=== PATIENT | male | born 1955 | race Caucasian/White ===

== ENCOUNTER 2016-12-23 14:57 | Inpatient (IN) ==
[2016-12-23] MEDS ORDERED: ONDANSETRON 4 MG/2 ML VIAL IV PRN (15:09)
[2016-12-23] MEDS ORDERED: SODIUM CHLORIDE 0.9% 1,000 ML IV SCH (15:30)
[2016-12-23] MEDS ORDERED: MAGNESIUM SULF RIDER 4 GM in PREMIX 1 EACH IV PRN (17:58)
[2016-12-23] MEDS ORDERED: SODIUM PHOSPHATE IV PRN (17:58)
[2016-12-23] MEDS ORDERED: SODIUM CHLORIDE 0.9% IV PRN (17:58)
[2016-12-23] MEDS ORDERED: MAGNESIUM SULF RIDER 2 GM in PREMIX 1 EACH IV PRN (17:58)
[2016-12-23] MEDS ORDERED: INSULIN REGULAR 100 UNIT/ML IV ONE ×2 (17:58→22:32)
[2016-12-23] MEDS ORDERED: DEXTROSE 50% 25 GM/50 ML VIAL IV PRN ×2 (17:58)
[2016-12-23] MEDS ORDERED: SODIUM BICARB INJ 100 MEQ in STERILE WATER INJ 400 ML IV PRN (17:58)
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
[2016-12-23] MEDS ORDERED: SKIN HEALING OINT (AQUAPHOR) 50 GM TUBE TOP PRN (18:28)
[2016-12-23 18:32] LABS: ABG Base Excess 1.3 MMOL/L (-2.5-2.5); ABG HCO3 25.6 MMOL/L (20-26); ABG Oxygen Saturation 99.3 % (95-100); ABG PCO2 33.7 MM HG (35-48); ABG PH 7.469 (7.35-7.45)
[2016-12-23] MEDS: INSULIN REGULAR DRIP 100 ML IV SCH (18:47)
[2016-12-23] MEDS: FONDAPARINUX 2.5 MG/0.5 ML SYRINGE SUBCUT SCH (18:47)
[2016-12-23] MEDS: PIPERACILLIN/TAZOBACTAM 3,375 MG in SODIUM CHLORIDE 0.9% 100 ML IV SCH (18:47)
--- NOTE | 2016-12-23 18:48 | XRay Report ---
XR chest 1V Indication: Shortness of breath. Comparison: Chest x-ray 12/02/2016. Technique: Portable AP chest was performed. Findings: Minimal haziness in the left costophrenic angle is unchanged suggesting minimal blunting and perhaps a small amount of dependent pleural fluid. Lungs otherwise are clear. The cardiomediastinal silhouette as well as right-sided central venous catheter are stable. Chest is otherwise unchanged. Impression: 1. Minimal interval change in the chest is suggested. Trace amount of pleural fluid within the left chest versus possible beam attenuation from anterior chest wall soft tissues partially opacifying the left costophrenic angle could be considered. 12/23/2016 6:44 PM PROCEDURE INTERPRETED AT [facility] DEPARTMENT OF RADIOLOGY Final Report Signed by: Dr. Jonny Jorgensen
[2016-12-23 19:09] LABS: Basophils % 0.2 % (0.0-0.8); Eosinophils % 0.2 % (0.00-10.9); Hematocrit 36.1 VOL% (42.0-52.0); Hemoglobin 10.8 GM/DL (14.0-18.0); Immature Granulocytes % 0.6 %; Immature Granulocytes Absolute 0.07 #; Lymphocytes # 2.9 10*3/uL (1.4-4.0); Lymphocytes % 26.7 % (21.2-54.2); Mean Corpuscular HGB Conc 29.9 GM/DL (32-36); Mean Corpuscular Hemoglobin 32 PG (27-34); Mean Corpuscular Volume 107.4 FL (87-102); Mean Platelet Volume 11.6 FL (9.6-12.0); Monocytes # 0.6 10*3/uL (0.11-0.8); Monocytes % 5.8 % (1.7-12.7); Neutrophils # 7.2 10*3/uL (1.4-7.4); Neutrophils % 66.5 % (38.7-73.9); Platelet Count 112 T/CUMM (130-400); Red Blood Count 3.36 MC/CUMM (3.8-5.5); White Blood Count 10.9 T/CUMM (4-12)
[2016-12-23 19:22] LABS: Calcium 8.3 MG/DL (8.5-10.1); Osmolality,Calculated 343.3 MOS/KG (273-304)
[2016-12-23] MEDS ORDERED: VANCOMYCIN INJ 1,500 MG in SODIUM CHLORIDE 0.9% 500 ML IV ONE (19:30)
[2016-12-23] MEDS: SODIUM CHLORIDE 0.45% 1,000 ML IV SCH (20:27)
[2016-12-23] MEDS: DOCUSATE SODIUM 100 MG CAPSULE PO SCH (20:28)
[2016-12-23] MEDS: VALPROIC ACID 250 MG/5 ML UDCUP PO SCH (20:31)
[2016-12-23 20:48] LABS: Apearance,Urine Slightly Hazy (Clear); Bacteria,Urine Occasional /HPF (Few); Bilirubin,Urine Negative (Negative); Blood, Urine Negative (Negative); Glucose,Urine (UA) Negative (Negative); Hyaline Casts,Urine 8 /LPF (0-3); Ketones,Urine Negative (Negative); Mucus,Urine Occasional /LPF (Occasional); Nitrite,Urine Negative (Negative); Protein,Urine Negative; RBC,Urine 13 /HPF (0-4); Renal Epithelial Cells,Urine Occasional /HPF (<1); Squamous Epithelial Cell,Urine Occasional /HPF (0-10); Urine Color Amber (Yellow); Urine Specific Gravity 1.021 (1.001-1.035); WBC,Urine 48 /HPF (0-6)
[2016-12-23] MEDS ORDERED: DIVALPROEX 500 MG TABLET PO SCH (21:00)
[2016-12-23] MEDS ORDERED: VALPROIC ACID 250 MG/5 ML UDCUP PO SCH (21:00)
[2016-12-23] MEDS ORDERED: ALBUTEROL/IPRATROPIUM 3 ML NEB RESP TX PRN (21:25)
[2016-12-23] MEDS ORDERED: SODIUM CHLORIDE 0.9% 1,000 ML IV ONE (21:25)
[2016-12-23 22:17] LABS: Calcium 8.4 MG/DL (8.5-10.1); Osmolality,Calculated 341.9 MOS/KG (273-304); Potassium 3.9 MMOL/L (3.5-5.1)
[2016-12-24 01:14] LABS: Allen Test Positive
[2016-12-24 01:15] LABS: ABG Base Excess -0.9 MMOL/L (-2.5-2.5); ABG HCO3 22.7 MMOL/L (20-26); ABG PCO2 34.9 MM HG (35-48); ABG PH 7.431 (7.35-7.45); ABG PO2 127.3 MM HG (80-95); ABG TCO2 23.8 MMOL/L (23-27)
[2016-12-24 01:16] LABS: ABG Oxygen Saturation 98.6 % (95-100)
[2016-12-24] MEDS: DEXTROSE 5% NACL 0.45% 1,000 ML IV SCH ×3 (01:57→07:45)
[2016-12-24 02:38] LABS: Calcium 7.7 MG/DL (8.5-10.1); Osmolality,Calculated 334.9 MOS/KG (273-304); Potassium 3.9 MMOL/L (3.5-5.1)
[2016-12-24] MEDS: POTASSIUM CHLORIDE RIDER 10 MEQ in PREMIX 1 EACH IV PRN ×2 (03:23→04:30)
[2016-12-24] MEDS: PIPERACILLIN/TAZOBACTAM 3,375 MG in SODIUM CHLORIDE 0.9% 100 ML IV SCH ×3 (03:28→18:07)
[2016-12-24 03:34] LABS: Allen Test Positive
[2016-12-24 03:36] LABS: ABG Base Excess -0.3 MMOL/L (-2.5-2.5); ABG HCO3 23.9 MMOL/L (20-26); ABG Oxygen Saturation 97.6 % (95-100); ABG PCO2 37.5 MM HG (35-48); ABG PH 7.422 (7.35-7.45); ABG PO2 112.1 MM HG (80-95)
[2016-12-24 03:53] LABS: Basophils % 0.3 % (0.0-0.8); Eosinophils # 0.1 10*3/uL (0.0-0.87); Hematocrit 32.9 VOL% (42.0-52.0); Hemoglobin 9.6 GM/DL (14.0-18.0); Immature Granulocytes % 0.6 %; Immature Granulocytes Absolute 0.04 #; Lymphocytes # 1.2 10*3/uL (1.4-4.0); Lymphocytes % 17.8 % (21.2-54.2); Mean Corpuscular HGB Conc 29.2 GM/DL (32-36); Mean Corpuscular Hemoglobin 32 PG (27-34); Mean Corpuscular Volume 109.7 FL (87-102); Mean Platelet Volume 11.2 FL (9.6-12.0); Monocytes # 0.3 10*3/uL (0.11-0.8); Monocytes % 3.9 % (1.7-12.7); Neutrophils # 5.3 10*3/uL (1.4-7.4); Neutrophils % 76.4 % (38.7-73.9); Red Cell Distribution Width 19.7 % (9.3-17.3); White Blood Count 6.9 T/CUMM (4-12)
[2016-12-24 03:58] LABS: Platelet Count 79 T/CUMM (130-400)
[2016-12-24] MEDS: SODIUM CHLORIDE 0.45% 1,000 ML IV SCH ×2 (04:29→06:11)
[2016-12-24 04:48] LABS: Band Neutrophils 3 % (0-10); Eosinophils 2 % (0-10); Lymphocytes 14 % (20-55); Metamyelocytes 1 %; Platelet Estimate Decreased; Segmented Neutrophils 78 % (50-85); Total Cells Counted 100
[2016-12-24 04:49] LABS: Anisocytosis 3+; Macrocytosis 3+; Ovalocytes Few
[2016-12-24 05:23] LABS: Albumin 1.8 G/DL (3.4-5.0); Bilirubin,Total 1.1 MG/DL (0.2-1.0); Calcium 7.9 MG/DL (8.5-10.1); Magnesium 2.1 MG/DL (1.8-2.4); Osmolality,Calculated 335.2 MOS/KG (273-304); Potassium 3.9 MMOL/L (3.5-5.1); Risk Ratio 3.4; Total Protein 5.9 G/DL (6.4-8.3); VLDL CHOLESTEROL 26.8 MG/DL
[2016-12-24 06:41] LABS: Calcium 7.7 MG/DL (8.5-10.1)
[2016-12-24] MEDS: INSULIN REGULAR DRIP 100 ML IV SCH ×2 (07:56)
[2016-12-24] MEDS: ASPIRIN CHEW 81 MG TABLET PO SCH ×2 (08:05→15:38)
[2016-12-24] MEDS: DOCUSATE SODIUM 100 MG CAPSULE PO SCH ×2 (08:05→20:59)
[2016-12-24] MEDS: BISACODYL 5 MG TABLET PO SCH ×2 (08:06→15:38)
[2016-12-24] MEDS: TAMSULOSIN 0.4 MG CAPSULE PO SCH ×2 (08:06→15:38)
[2016-12-24] MEDS: CLOPIDOGREL 75 MG TABLET PO SCH ×2 (08:06→15:38)
--- NOTE | 2016-12-24 08:14 | XRay Report ---
XR chest 1V portable Indication: COPD Comparison: Chest x-ray 12/23/2016 Technique: Portable AP chest was performed. Findings: Right-sided central venous catheter is stable. Haziness in the left costophrenic angle may in part reflect soft tissue attenuation. Change in the lung parenchyma or cardiac silhouette has occurred. Impression: 1. No adverse interval change in the chest. Haziness in the left costophrenic angle is favored to represent beam attenuation from anterior chest wall soft tissues. 12/24/2016 8:11 AM PROCEDURE INTERPRETED AT [facility] DEPARTMENT OF RADIOLOGY Final Report Signed by: Dr. Jonny Jorgensen
--- NOTE | 2016-12-24 08:32 | Hospitalist Progress Note ---
Assessment and Plan - Time spent with patient Time spent with patient: Greater than 30 minutes (1) Severe sepsis Status: Acute Assessment and plan: Patient was admitted with severe sepsis with likely source of sacral decubitus versus possible UTI. He was placed on broad-spectrum IV antibiotics. General surgery has been consulted to assess his sacral decubitus. Current Visit: Yes (2) Sacral decubitus ulcer Status: Acute Assessment and plan: Continuing IV antibiotics and awaiting general surgery evaluation and recommendations. Current Visit: Yes (3) Hypernatremia Problem details: Continue free water replacement. Status: Resolved Assessment and plan: Continuing to volume resuscitate, monitoring electrolytes and making adjustments as needed. Current Visit: No (4) Uncontrolled type 2 diabetes mellitus with hyperglycemia Status: Acute Assessment and plan: Patient had uncontrolled diabetes mellitus with hyperglycemia and electrolyte abnormality of diabetic ketoacidosis on admission. We will continue to hydrate , correct electrolytes, continue insulin subcutaneously with Accu-Cheks and sliding scale for control. Current Visit: Yes (5) Thrombocytopenia Status: Acute Assessment and plan: No evidence of bleeding at this time. Platelets did drop. We will continue to monitor closely. Current Visit: No (6) Seizure disorder Status: Chronic Assessment and plan: No noted seizure activity at this time. Continue his current medical regimen. Current Visit: No (7) Coronary artery disease Status: Chronic Assessment and plan: No evidence of acute coronary syndrome. Continue current medical regimen. Current Visit: No Hospitalist: Subjective Interval history: Chart has been reviewed and patient examined. I have reviewed his outline record as well and see no evidence of diabetic ketoacidosis as he had no acidosis present and no anion gap. No new issues at this time. Exam - Constitutional Vitals: Period Temp Pulse Resp BP Sys/Camara Pulse Ox Last 24 Hr 97.2 F-99.4 F 114-126 17-31 70-100/45-91 100-100 General appearance: no acute distress - Head Head exam: Present: normocephalic, atraumatic - Eye Eye exam: Present: EOMI Pupils: Present: TREVOR - ENT ENT exam: Present: other (Dry mucous membranes) - Neck Neck exam: Present: normal inspection - Respiratory Respiratory exam: Present: clear to auscultation bilaterally - Cardiovascular Cardiovascular exam: Present: regular rate and rhythm, tachycardia - GI/Abdominal GI/Abdominal exam: Present: normal bowel sounds, soft, other (PEG tube in place) . Absent: mass, tenderness, rebound - Extremities Exam Extremities exam: Absent: calf tenderness, edema - Back Exam Back exam: Present: normal inspection - Neurological Exam Neurological exam: Present: other (Opens his eyes and does not follow commands. Very minimal withdrawal to tactile stimulation of his upper and lower extremities) - Skin Skin exam: Present: warm, dry Results - Labs CBC & BMP: 12/24/16 03:30 12/24/16 05:04 Lab Results: I have reviewed the past 24 hour labs - Diagnostic Findings Procedure: Chest x-ray: report reviewed by me
[2016-12-24] MEDS ORDERED: GLUCAGON 1 MG VIAL IM PRN (08:42)
[2016-12-24] MEDS: VALPROIC ACID 250 MG/5 ML UDCUP PO SCH ×2 (09:11→20:59)
[2016-12-24] MEDS: DEXT 5% NACL 0.2% KCL 20 MEQ 20 MEQ/1,000 ML BAG IV SCH ×2 (09:27→17:12)
[2016-12-24 10:42] LABS: Calcium 7.6 MG/DL (8.5-10.1); Osmolality,Calculated 332.2 MOS/KG (273-304)
--- NOTE | 2016-12-24 10:57 | General Surgery Consult Note ---
Assessment and Plan (1) Sacral decubitus ulcer Status: Acute Assessment and plan: This patient was admitted for treatment of presumed sepsis. He does have a urinary tract infection on his urinalysis. I am not convinced that he is truly in septic shock. I certainly do not think that his decubitus ulcer as the cause of this kind either way, I do not of presentation. Feel that we should offer this patient debridement of his sacral decubitus wound. He has low quality of life and is bedbound in a [place] [facility] [place]. He is a paranoid schizophrenic who now is requiring tube feeds and he can make any decisions on his own. Family has been difficult to contact. I do not think putting him through the pain and suffering of debriding of decubitus ulcers in his best interest. I understand the possibility of this ulcer eventually causing a septic episode that he may not be able to recover from but given his quality of life and overall situation I do not feel that putting him through the stress and pain of an operation would be the right thing to do. I will discuss this with his family as soon as we can get a hold of them. Current Visit: Yes History of Present Illness Chief complaint: Sacral wound and urinary tract infection History of present illness: Mr. Rollins is a 61 year old male who apparently has schizophrenia and is completely nonfunctional now requires feedings through a PEG tube and is at a [place] [facility] [place] who was admitted to [place] for presumed sepsis and has a urinary tract infection and a sacral decubitus wound that we have been following without debridement. He was admitted to the CCU overnight with a normal white blood cell count. He has no fevers. His blood pressure is slightly low but his lactic acid was normal. He is not acidotic. He is completely nonverbal and does not communicate at all. Home Medications Medication Instructions Recorded Confirmed Type Clopidogrel [Plavix] 75 mg PO DAILY 11/27/16 12/23/16 History Divalproex [Depakote] 500 mg PO BID 11/27/16 11/27/16 History amLODIPine [Norvasc] 5 mg PO DAILY 11/27/16 12/23/16 History Aspirin Chew Tab 81 mg PO DAILY tablet 12/13/16 12/23/16 Rx Bisacodyl Tab [Dulcolax Tab] 10 mg PO DAILY tablet 12/13/16 12/23/16 Rx Collagenase Oint [Santyl Oint] 1 applic TOP DAILY applic 12/13/16 12/23/16 Rx Docusate Sodium Cap [Colace Cap] 100 mg PO BID capsule 12/13/16 12/23/16 Rx Skin Healing Oint (Aquaphor) 1 applic TOP PRN PRN #0 applic 12/13/16 12/23/16 Rx [Aquaphor] Tamsulosin [Flomax] 0.4 mg PO DAILY capsule 12/13/16 12/23/16 Rx Valproic Acid Liquid [Depakene] 500 mg PO BID 12/13/16 12/23/16 Rx Ziprasidone Cap [Geodon Cap] 20 mg PO Q8H PRN #0 capsule 12/13/16 12/23/16 Rx Acetaminophen Tab [Tylenol Tab] 650 mg PO Q4H PRN 12/23/16 12/23/16 History HYDROcodone/ACETAMIN 10-325 [Oley 1 tablet PO DIRECTED 12/23/16 12/23/16 History 10-325] Hydrocodone/Acetaminophen [Oley 1 each PO Q12H 12/23/16 12/23/16 History 10-325 Tablet] Multivitamin [Multivitamins] 1 each PO DAILY 12/23/16 12/23/16 History metFORMIN [Glucophage] 500 mg PO BID W/MEALS 12/23/16 12/23/16 History Allergies Allergy/AdvReac Type Severity Reaction Status Date / Time acetaminophen Allergy Unknown/Unable Verified 11/27/16 02:09 to obtain heparin Allergy Unknown/Unable Verified 11/27/16 02:09 to obtain meperidine [From Demerol] Allergy Unknown/Unable Verified 11/27/16 02:09 to obtain Medical,Surgical,& Family Hx - Medical History Cardio: History of: CHF, Hypertension Psychological: History of: Anxiety Disorders, Bipolar Disorder, Depression, Schizophrenia Neurology: No history of: Seizures Endocrine: History of: Diabetes Mellitus (IDDM), Dyslipidemia Genitourinary: History of: Recurring Urinary Tract Infections Gastrointestinal: History of: GERD Musculoskeletal: History of: Back/Neck Problems - Surgical History Orthopedic Surgeries: Surgical HX of;: Orthopedic Surgery - Social History Smoking Status: Unknown if ever smoked Frequency of Alcohol Use: Unknown Type of Drug Use: Unknown - Constitutional Constitutional: Present: as per HPI - EENT Nose, mouth and throat: Present: as per HPI - Cardiovascular Cardiovascular: Present: as per HPI - Respiratory Respiratory: Present: as per HPI - Gastrointestinal Gastrointestinal: Present: as per HPI - Genitourinary Genitourinary: Present: as per HPI - Musculoskeletal Musculoskeletal: Present: as per HPI - Neurological Neurological: Present: as per HPI - Endocrine Endocrine: Present: as per HPI Hematologic/Lymphatic: Present: as per HPI Exam - Constitutional Vitals: Period Temp Pulse Resp BP Sys/Camara Pulse Ox Last 24 Hr 97.2 F-99.4 F 111-126 17-31 70-100/45-91 100-100 General appearance: no acute distress, over weight - Head Head exam: Present: normal inspection, normocephalic - Eye Eye exam: Present: EOMI - ENT ENT exam: Present: normal exam Mouth exam: Present: normal external inspection - Neck Neck exam: Present: normal inspection, trachea midline - Respiratory Respiratory exam: Present: clear to auscultation bilaterally. Absent: accessory muscle use, chest wall tenderness - Cardiovascular Cardiovascular exam: Present: tachycardia. Absent: irregular rhythm, systolic murmur - GI/Abdominal GI/Abdominal exam: Present: soft. Absent: tenderness, rebound - Anus/Rectum Anus/Rectum: other (There is a sacral decubitus wound that is boggy. There is no drainage from it. This does not look like a source of sepsis but it does have necrotic tissue in it.) - Extremities Exam Extremities exam: Present: normal inspection, normal capillary refill - Back Exam Back exam: Present: normal inspection - Neurological Exam Neurological exam: Present: alert - Skin Skin exam: Present: normal color, warm Results - Labs CBC & BMP: 12/24/16 03:30 12/24/16 09:57
[2016-12-24] MEDS: INSULIN LISPRO 100 UNIT/ML SUBCUT SCH ×5 (11:32→23:46)
--- NOTE | 2016-12-24 12:45 | Event Note ---
I have discussed the patient's situation with his daughter Ann over the phone. I have explained the situation with his sacral decubitus wound and the necrotic tissue there. I have explained the options to the patient's family but have also expressed my concern about his long-term outcomes with the sacral wound unless he can start getting up out of bed and moving around. I am willing to proceed with any therapy that the patient's daughter would like to address and be as aggressive as they would like me to be but after discussing the etiology of sacral decubitus wounds and the treatment options with the patient's daughter, they have elected to hold off on any invasive surgery and just attempt local wound care. The patient's daughter understands that this could result in an infection that is unable to be controlled but does not want to proceed with any surgical debridement regardless. I think this is a reasonable decision based on the condition that the patient is in and his current quality of life. I will continue to follow the patient and have told the daughter that I will be happy to answer any further questions or continue the discussion in the future if she has any other issues she would like to address regarding his wound management.
[2016-12-24 14:16] LABS: Calcium 7.9 MG/DL (8.5-10.1); Osmolality,Calculated 334.3 MOS/KG (273-304); Potassium 4.1 MMOL/L (3.5-5.1)
[2016-12-24] MEDS: FONDAPARINUX 2.5 MG/0.5 ML SYRINGE SUBCUT SCH (18:07)
[2016-12-24] MEDS ORDERED: INSULIN GLARGINE 100 UNIT/ML SUBCUT SCH (21:00)
[2016-12-24] MEDS: VANCOMYCIN INJ 1,500 MG in SODIUM CHLORIDE 0.9% 500 ML IV SCH (21:01)
[2016-12-25] MEDS: DEXT 5% NACL 0.2% KCL 20 MEQ 20 MEQ/1,000 ML BAG IV SCH ×3 (01:18→17:29)
[2016-12-25] MEDS: INSULIN LISPRO 100 UNIT/ML SUBCUT SCH ×5 (01:21→18:21)
[2016-12-25] MEDS: PIPERACILLIN/TAZOBACTAM 3,375 MG in SODIUM CHLORIDE 0.9% 100 ML IV SCH (02:27)
[2016-12-25 05:20] LABS: Basophils % 0.2 % (0.0-0.8); Eosinophils # 0.1 10*3/uL (0.0-0.87); Eosinophils % 1.6 % (0.00-10.9); Hematocrit 29.4 VOL% (42.0-52.0); Hemoglobin 8.6 GM/DL (14.0-18.0); Immature Granulocytes Absolute 0.06 #; Lymphocytes # 1.5 10*3/uL (1.4-4.0); Lymphocytes % 23.6 % (21.2-54.2); Mean Corpuscular HGB Conc 29.3 GM/DL (32-36); Mean Corpuscular Hemoglobin 32 PG (27-34); Mean Corpuscular Volume 108.5 FL (87-102); Mean Platelet Volume 11.5 FL (9.6-12.0); Monocytes # 0.3 10*3/uL (0.11-0.8); Monocytes % 4.5 % (1.7-12.7); Neutrophils # 4.3 10*3/uL (1.4-7.4); Neutrophils % 69.1 % (38.7-73.9); Platelet Count 60 T/CUMM (130-400); Red Blood Count 2.71 MC/CUMM (3.8-5.5); Red Cell Distribution Width 18.9 % (9.3-17.3); White Blood Count 6.2 T/CUMM (4-12)
[2016-12-25 05:32] LABS: Osmolality,Calculated 326.7 MOS/KG (273-304); Potassium 4.3 MMOL/L (3.5-5.1)
[2016-12-25 06:19] LABS: Band Neutrophils 3 % (0-10); Eosinophils 1 % (0-10); Hypochromasia Slight; Lymphocytes 20 % (20-55); Macrocytosis 1+; Platelet Estimate Decreased; Segmented Neutrophils 72 % (50-85); Total Cells Counted 100
[2016-12-25] MEDS: TAMSULOSIN 0.4 MG CAPSULE PO SCH (08:50)
[2016-12-25] MEDS: CLOPIDOGREL 75 MG TABLET PO SCH (08:50)
[2016-12-25] MEDS: BISACODYL 5 MG TABLET PO SCH (08:50)
[2016-12-25] MEDS: DOCUSATE SODIUM 100 MG CAPSULE PO SCH ×2 (08:50→20:57)
[2016-12-25] MEDS: ASPIRIN CHEW 81 MG TABLET PO SCH (08:50)
--- NOTE | 2016-12-25 08:51 | General Surgery Progress Note ---
Assessment and Plan (1) Sacral decubitus ulcer Status: Acute Assessment and plan: The patient has gram-positive cocci in his blood. His initial urine culture results are negative. This is certainly more concerning for infection that may have come from his sacral wound. I discussed the situation with the patient's daughter yesterday on the phone and that in the face of an infection caused by the sacral wound she did not want to proceed with aggressive surgical treatment because of the reasons mentioned in yesterday's notes. I will honor the patient 's family wishes who are his decision makers currently. We will see how this responds to antibiotics and local wound care. The wound has some sleepiness to but there does not feel to be any undrained abscess. There certainly could be osteomyelitis of the sacrum. Continue local wound care for now and I will follow-up with the family again soon regarding the new culture results. Current Visit: Yes Subjective Patient reports: Present: no new complaints, fever Narrative: The patient did have a fever overnight. His blood cultures have grown gram- positive cocci in 2 bottles. Urine culture is negative. Exam - Constitutional Vitals: Period Temp Pulse Resp BP Sys/Camara Pulse Ox Last 24 Hr 97.6 F-101.6 F 106-129 15-30 83-116/48-64 98-100 General appearance: no acute distress, over weight - Head Head exam: Present: normal inspection, normocephalic - Eye Eye exam: Present: EOMI Pupils: Present: TREVOR - ENT ENT exam: Present: normal exam Mouth exam: Present: normal external inspection, normal voice - Neck Neck exam: Present: normal inspection, trachea midline - Respiratory Respiratory exam: Present: clear to auscultation bilaterally. Absent: accessory muscle use, chest wall tenderness - Cardiovascular Cardiovascular exam: Present: tachycardia. Absent: RRR, systolic murmur - GI/Abdominal GI/Abdominal exam: Present: normal bowel sounds, soft. Absent: tenderness, rebound - Anus/Rectum Anus/Rectum: other (Sacral decubitus wound is unchanged.) - Extremities Exam Extremities exam: Present: normal inspection, normal capillary refill - Back Exam Back exam: Present: normal inspection - Neurological Exam Neurological exam: Present: alert, oriented X3 Speech: Present: normal - Skin Skin exam: Present: normal color, warm Results - Labs CBC & BMP: 12/25/16 05:05 12/25/16 05:14
[2016-12-25] MEDS: VALPROIC ACID 250 MG/5 ML UDCUP PO SCH ×2 (08:54→20:57)
--- NOTE | 2016-12-25 09:03 | Hospitalist Progress Note ---
Assessment and Plan - Time spent with patient Time spent with patient: Less than 30 minutes (1) Severe sepsis Status: Acute Assessment and plan: Patient was admitted with severe sepsis with likely source of sacral decubitus versus possible UTI. He was placed on broad-spectrum IV antibiotics. General surgery has been consulted to assess his sacral decubitus. 12/25/16: Patient was febrile last evening his blood cultures positive for gram- positive cocci. Empiric IV antibiotics as well as local wound care. Appreciate Dr. Bernal's assistance. Current Visit: Yes (2) Sacral decubitus ulcer Status: Acute Assessment and plan: Continuing IV antibiotics and continue with general surgery evaluation and recommendations. Current Visit: Yes (3) Hypernatremia Problem details: Continue free water replacement. Status: Acute Assessment and plan: Continuing to volume resuscitate, monitoring electrolytes and making adjustments as needed. Current Visit: No (4) Uncontrolled type 2 diabetes mellitus with hyperglycemia Status: Acute Assessment and plan: Patient had uncontrolled diabetes mellitus with hyperglycemia and electrolyte abnormality of diabetic ketoacidosis on admission. We will continue to hydrate , correct electrolytes, continue insulin subcutaneously with Accu-Cheks and sliding scale for control. 12/25/16: Blood sugars remain elevated. Will increase his long-acting insulin and continue sliding scale. Current Visit: Yes (5) Thrombocytopenia Status: Acute Assessment and plan: No evidence of bleeding at this time. Platelets did drop. We will continue to monitor closely. 12/25/16: Platelets continued fall. There is no evidence of bleeding at this time. I will discontinue his Zosyn and provide alternative antibiotic therapy. Although rare I will discontinue his Arixtra at this time and continue with mechanical DVT prophylaxis. We will follow-up CBC in the a.m. Continuing to treat his underlying sepsis. Current Visit: No (6) Seizure disorder Status: Chronic Assessment and plan: No noted seizure activity at this time. Continue his current medical regimen. Current Visit: No (7) Coronary artery disease Status: Chronic Assessment and plan: No evidence of acute coronary syndrome. Continue current medical regimen. Current Visit: No Hospitalist: Subjective Interval history: Patient appears to be more alert today. He was febrile last night blood cultures are positive. He has been seen by general surgery and appreciate Dr. Bernal's assistance. No bleeding noted. Exam - Constitutional Vitals: Period Temp Pulse Resp BP Sys/Camara Pulse Ox Last 24 Hr 97.6 F-101.6 F 106-129 15-30 83-116/48-64 98-100 General appearance: no acute distress - Head Head exam: Present: normocephalic, atraumatic - Eye Eye exam: Present: EOMI Pupils: Present: TREVOR - ENT ENT exam: Present: normal exam - Respiratory Respiratory exam: Present: clear to auscultation bilaterally - Cardiovascular Cardiovascular exam: Present: regular rate and rhythm. Absent: systolic murmur - GI/Abdominal GI/Abdominal exam: Present: normal bowel sounds, soft. Absent: mass, tenderness - Extremities Exam Extremities exam: Absent: calf tenderness, edema - Neurological Exam Neurological exam: Present: other (He is awake this morning and does obey some simple commands.) - Skin Skin exam: Present: warm, dry. Absent: petechiae Results - Labs CBC & BMP: 12/25/16 05:05 12/25/16 05:14 Lab Results: I have reviewed the past 24 hour labs
[2016-12-25] MEDS: COLLAGENASE OINT 30 GM TUBE TOP SCH (09:07)
[2016-12-25] MEDS: MEROPENEM 1,000 MG in SODIUM CHLORIDE 0.9% 100 ML IV SCH ×2 (09:26→17:29)
[2016-12-25] MEDS ORDERED: INSULIN LISPRO 100 UNIT/ML SUBCUT ONE (20:39)
[2016-12-25] MEDS ORDERED: INSULIN GLARGINE 100 UNIT/ML SUBCUT SCH (21:00)
[2016-12-25] MEDS: VANCOMYCIN INJ 1,500 MG in SODIUM CHLORIDE 0.9% 500 ML IV SCH (21:02)
[2016-12-26] MEDS: INSULIN LISPRO 100 UNIT/ML SUBCUT SCH ×7 (00:05→21:48)
[2016-12-26] MEDS: SODIUM CHLORIDE 0.45% 1,000 ML IV SCH ×2 (00:37→08:11)
[2016-12-26] MEDS: MEROPENEM 1,000 MG in SODIUM CHLORIDE 0.9% 100 ML IV SCH ×2 (03:30→08:08)
[2016-12-26 04:49] LABS: Basophils % 0.2 % (0.0-0.8); Eosinophils # 0.1 10*3/uL (0.0-0.87); Eosinophils % 3.1 % (0.00-10.9); Hematocrit 28.6 VOL% (42.0-52.0); Hemoglobin 8.4 GM/DL (14.0-18.0); Immature Granulocytes % 0.7 %; Immature Granulocytes Absolute 0.03 #; Lymphocytes % 22.3 % (21.2-54.2); Mean Corpuscular HGB Conc 29.4 GM/DL (32-36); Mean Corpuscular Hemoglobin 32 PG (27-34); Mean Corpuscular Volume 108.3 FL (87-102); Mean Platelet Volume 11.7 FL (9.6-12.0); Monocytes # 0.2 10*3/uL (0.11-0.8); Monocytes % 5.1 % (1.7-12.7); Neutrophils # 3.1 10*3/uL (1.4-7.4); Neutrophils % 68.6 % (38.7-73.9); Platelet Count 55 T/CUMM (130-400); Red Blood Count 2.64 MC/CUMM (3.8-5.5); Red Cell Distribution Width 18.6 % (9.3-17.3); White Blood Count 4.5 T/CUMM (4-12)
[2016-12-26 04:58] LABS: Calcium 8.2 MG/DL (8.5-10.1); Magnesium 2.2 MG/DL (1.8-2.4); Osmolality,Calculated 313.9 MOS/KG (273-304); Potassium 4.6 MMOL/L (3.5-5.1); Prealbumin 9.8 MG/DL (20-40)
[2016-12-26] MEDS: DEXT 5% NACL 0.2% KCL 20 MEQ 20 MEQ/1,000 ML BAG IV SCH ×2 (05:50→09:42)
[2016-12-26 06:19] LABS: Eosinophils 2 % (0-10); Hypochromasia 1+; Lymphocytes 17 % (20-55); Microcytosis 1+; Platelet Estimate Decreased; Segmented Neutrophils 76 % (50-85); Total Cells Counted 100
[2016-12-26] MEDS: VALPROIC ACID 250 MG/5 ML UDCUP PO SCH ×2 (08:08→21:47)
[2016-12-26] MEDS: BISACODYL 5 MG TABLET PO SCH (08:09)
[2016-12-26] MEDS: COLLAGENASE OINT 30 GM TUBE TOP SCH (08:09)
[2016-12-26] MEDS: ASPIRIN CHEW 81 MG TABLET PO SCH (08:09)
[2016-12-26] MEDS: CLOPIDOGREL 75 MG TABLET PO SCH (08:09)
[2016-12-26] MEDS: TAMSULOSIN 0.4 MG CAPSULE PO SCH (08:10)
[2016-12-26] MEDS: DOCUSATE SODIUM 100 MG CAPSULE PO SCH ×2 (08:10→21:47)
[2016-12-26] MEDS: VANCOMYCIN INJ 1,500 MG in SODIUM CHLORIDE 0.9% 500 ML IV SCH ×2 (10:20→21:47)
--- NOTE | 2016-12-26 12:13 | Hospitalist Progress Note ---
Assessment and Plan (1) Bacteremia Status: Acute Assessment and plan: gram positive cocci, cont vanco Current Visit: Yes (2) Hypernatremia Problem details: Continue free water replacement. Status: Acute Assessment and plan: change to D5w at 100 ml/hr Current Visit: No (3) Altered mental status Status: Chronic Current Visit: No (4) Septic shock Status: Acute Assessment and plan: due to sacral wound with bacteremia Current Visit: No (5) Diabetes mellitus Status: Acute Assessment and plan: bs elevated and change lantus 20 units sq bid Current Visit: No (6) Moderate malnutrition Status: Acute Current Visit: No (7) Pancytopenia Status: Acute Assessment and plan: still dropping Current Visit: No (8) Sacral decubitus ulcer Status: Acute Assessment and plan: needs debridement but daughter does not want to do anything more aggressive Current Visit: Yes Hospitalist: Subjective Interval history: Family not wanting aggressive care. Will talk to daughter about hospice to see if she is interested and pursuing. Exam - Constitutional Vitals: Period Temp Pulse Resp BP Sys/Camara Pulse Ox Last 24 Hr 97.2 F-98.1 F 99-112 12-26 86-133/48-77 99-100 Exam: Heart Rate-[tacky] Lungs-[CTAB] GI-[+bs soft, NT] Ext-[no edema] Neuro [lethargic not following commands psych [cannot evaluate. General [no acute distress] Results - Labs CBC & BMP: 12/26/16 03:30 12/26/16 03:30 Lab Results: I have reviewed the past 24 hour labs Labs: Gram-positive cocci in 2 of 2 blood cultures, urine culture growing yeast, MRSA negative by PCR staph aureus negative - Diagnostic Findings Procedure: Chest x-ray: report reviewed by me (no pneumonia )
[2016-12-26] MEDS: DEXTROSE 5% 1,000 ML IV SCH ×2 (12:28→22:00)
--- NOTE | 2016-12-26 12:44 | Infectious Disease Consult ---
Assessment and Plan (1) Bacteremia Status: Acute Assessment and plan: He has gram-positive septicemia and the most likely source that I can see is his large sacral decubitus ulcer. Case complicated by acute renal failure on admission but this has now resolved. There is no evidence of urinary tract infection. Recommendations: 1. Agree with empiric vancomycin therapy, pending final blood culture results 2. Monitor vancomycin levels and also renal function closely 3. Repeat blood cultures 2 sets Thank you very much for the consult. Will follow. Current Visit: Yes (2) Sacral decubitus ulcer Status: Acute Assessment and plan: This is quite an extensive also however I am told it is actually better than when he first came before with more conservative management. Wound care will be continued. Since no resistant gram negatives have been isolated in the past I am going to de-escalate from meropenem to Zosyn. Of course she is already on vancomycin. Dr. Alva is discussing with family whether or not they would like him to be on hospice as it seems I do not want any aggressive surgical care done to this ulcer. Current Visit: Yes (3) Uncontrolled type 2 diabetes mellitus with hyperglycemia Status: Acute Current Visit: Yes (4) Altered mental status Status: Chronic Assessment and plan: Likely due to sepsis. Current Visit: No History of Present Illness Chief complaint: Positive blood cultures History of present illness: Mr. Rollins is a 61 year old male Sent from his snf because of altered mental state. He was hypotensive requiring vasopressor support until this morning when it was discontinued. The patient had blood cultures drawn at admission and they have come back positive for gram-positive cocci in 2 of 2 sets. Patient also treated for DKA on admission. He is somewhat better today compared to when he first came in with no fever for over 48 hours somewhat improved mental status. He has a large sacral decubitus ulcer but in discussing with the wound care nurse this has actually improved in appearance compared to when he was last seen a few weeks ago. Given the positive blood cultures I am asked to assist with management. Home Medications Medication Instructions Recorded Confirmed Type Clopidogrel [Plavix] 75 mg PO DAILY 11/27/16 12/23/16 History amLODIPine [Norvasc] 5 mg PO DAILY 11/27/16 12/23/16 History Aspirin Chew Tab 81 mg PO DAILY tablet 12/13/16 12/24/16 Rx Bisacodyl Tab [Dulcolax Tab] 10 mg PO DAILY tablet 12/13/16 12/23/16 Rx Collagenase Oint [Santyl Oint] 1 applic TOP DAILY applic 12/13/16 12/23/16 Rx Docusate Sodium Cap [Colace Cap] 100 mg PO BID capsule 12/13/16 12/23/16 Rx Skin Healing Oint (Aquaphor) 1 applic TOP PRN PRN #0 applic 12/13/16 12/23/16 Rx [Aquaphor] Tamsulosin [Flomax] 0.4 mg PO DAILY capsule 12/13/16 12/23/16 Rx Valproic Acid Liquid [Depakene] 500 mg PO BID 12/13/16 12/23/16 Rx Acetaminophen Tab [Tylenol Tab] 650 mg PO Q4H PRN 12/23/16 12/23/16 History HYDROcodone/ACETAMIN 10-325 [[place] 1 tablet PO Q12HR PRN 12/23/16 12/24/16 History 10-325] Hydrocodone/Acetaminophen [[place] 1 each PO Q12H 12/23/16 12/23/16 History 10-325 Tablet] Multivitamin [Multivitamins] 1 each PO DAILY 12/23/16 12/23/16 History metFORMIN [Glucophage] 500 mg PO BID W/MEALS 12/23/16 12/23/16 History Insulin Glargine [Lantus] 10 unit SUBCUT DAILY 12/24/16 12/24/16 History Ziprasidone Cap [Geodon Cap] 20 mg PO DAILY 12/24/16 12/24/16 History Allergies Allergy/AdvReac Type Severity Reaction Status Date / Time acetaminophen Allergy Unknown/Unable Verified 11/27/16 02:09 to obtain heparin Allergy Unknown/Unable Verified 11/27/16 02:09 to obtain meperidine [From Demerol] Allergy Unknown/Unable Verified 11/27/16 02:09 to obtain ROS unobtainable: due to mental status Medical,Surgical,& Family Hx - Medical History Cardio: History of: CHF, Hypertension Psychological: History of: Anxiety Disorders, Bipolar Disorder, Depression, Schizophrenia Neurology: No history of: Seizures Endocrine: History of: Diabetes Mellitus (IDDM), Dyslipidemia Genitourinary: History of: Recurring Urinary Tract Infections Gastrointestinal: History of: GERD Musculoskeletal: History of: Back/Neck Problems - Surgical History Orthopedic Surgeries: Surgical HX of;: Orthopedic Surgery - Social History Smoking Status: Unknown if ever smoked Frequency of Alcohol Use: Unknown Type of Drug Use: Unknown Infectious Disease Exam H&P - Constitutional Vitals: Vital Signs Temp Pulse Resp BP Pulse Ox 97.2 F L 104 H 12 133/77 99 12/26/16 08:00 12/26/16 11:00 12/26/16 11:00 12/26/16 11:00 12/26/16 11:00 Intake and Output 12/25/16 12/26/16 12/26/16 23:59 07:59 15:59 Intake Total 1974 / 1974 1500 / 1500 2280 / 2280 Output Total 1030 / 1030 730 / 730 150 / 150 Balance 945 / 945 770 / 770 2130 / 2130 Intake: IV 1600 / 1600 1100 / 1100 2100 / 2100 D5 1/4NS KCL 20 MEQ 20 1000 / 1000 1000 / 1000 meq In 1,000 ml @ 125 mls /hr IV .Q8H ELENA Rx#: [id number] Merrem 1,000 mg In Ns 100 100 / 100 100 / 100 100 / 100 ml @ 200 mls/hr IV Q8H ELENA Rx#:[id number] 1/2Ns 1,000 ml @ 125 mls/ 1500 / 1500 hr IV .Q8H ELENA Rx#: [id number] Vancomycin Inj 1,000 mg 500 / 500 500 / 500 In Ns 500 ml @ 250 mls/hr IV Q12H ELENA Rx#: [id number] Tube Feeding Flush 240 / 240 400 / 400 180 / 180 Bowel Management Flush 135 / 135 Output: Urine 930 / 930 630 / 630 100 / 100 Stool 100 / 100 100 / 100 50 / 50 Other: Tube Feeding 240 237 240 Voiding Method Indwelling Catheter Indwelling Catheter Indwelling Catheter Weight 94.03 kg Patient Weight 12/26/16 23:59 Weight 94.03 kg Exam: General: Patient chronically ill-appearing, calling out for water, but he is confused HEENT: Mucous membranes pink and moist, anicteric acyanotic, TREVOR, no oropharyngeal exudates, mouth very dry Neck: Supple, no thyroid gland enlargement, no lymphadenopathy Respiratory system: Breath sounds vesicular, no crepitations or wheezes Cardiovascular: Normal S1 and S2, no murmurs appreciated Abdomen: Normal bowel sounds, soft nontender throughout, no organomegaly or mass Genitourinary: No suprapubic pain or bladder distention, clear urine from Goodwin catheter Extremities: Mild bilateral lower extremity edema Skin: No rash; sacral wound noted there is a large eschar which is a bit moist, no significant drainage peripherally or surrounding cellulitis however there is somewhat of an unpleasant odor associated with this ulcer Reports - Labs CBC & BMP: 12/26/16 03:30 12/26/16 03:30 Labs: Laboratory Results - last 24 hr 12/25/16 12/25/16 12/25/16 11:04 15:42 18:00 WBC RBC Hgb Hct MCV MCH MCHC RDW Plt Count MPV Neut % (Auto) Lymph % (Auto) [place] % (Auto) Eos % (Auto) Baso % (Auto) Neut # (Auto) Lymph # (Auto) [place] # (Auto) Eos # (Auto) Baso # (Auto) Total Counted Immature Gran % Nucleated RBC % Immature Gran # Segmented Neutrophils Lymphocytes Monocytes Eosinophils Nucleated RBCs # Platelet Estimate Hypochromasia Microcytosis Sodium Potassium Chloride Carbon Dioxide Anion Gap BUN Creatinine GFR Calculation BUN/Creatinine Ratio Glucose POC Glucose 429 H 381 H 414 H Calculated Osmolality Calcium Magnesium Prealbumin 12/25/16 12/25/16 12/26/16 20:21 23:42 03:30 WBC RBC Hgb Hct MCV MCH MCHC RDW Plt Count MPV Neut % (Auto) Lymph % (Auto) [place] % (Auto) Eos % (Auto) Baso % (Auto) Neut # (Auto) Lymph # (Auto) [place] # (Auto) Eos # (Auto) Baso # (Auto) Total Counted Immature Gran % Nucleated RBC % Immature Gran # Segmented Neutrophils Lymphocytes Monocytes Eosinophils Nucleated RBCs # Platelet Estimate Hypochromasia Microcytosis Sodium 151 H Potassium 4.6 Chloride 118 H Carbon Dioxide 30 Anion Gap 7.6 BUN 30 H D Creatinine 0.70 GFR Calculation 126 BUN/Creatinine Ratio 42.00 H Glucose 267 H POC Glucose 424 H 442 H Calculated Osmolality 313.9 H Calcium 8.2 L Magnesium 2.2 Prealbumin 9.8 L 12/26/16 12/26/16 12/26/16 03:30 03:38 06:05 WBC 4.5 RBC 2.64 L Hgb 8.4 L Hct 28.6 L MCV 108.3 H MCH 32 MCHC 29.4 L RDW 18.6 H Plt Count 55 L MPV 11.7 Neut % (Auto) 68.6 Lymph % (Auto) 22.3 [place] % (Auto) 5.1 Eos % (Auto) 3.1 Baso % (Auto) 0.2 Neut # (Auto) 3.1 Lymph # (Auto) 1.0 L [place] # (Auto) 0.2 Eos # (Auto) 0.1 Baso # (Auto) 0.0 Total Counted 100 Immature Gran % 0.7 Nucleated RBC % 0.0 Immature Gran # 0.03 Segmented Neutrophils 76 Lymphocytes 17 L Monocytes 5 Eosinophils 2 Nucleated RBCs # 0.00 Platelet Estimate Decreased Hypochromasia 1+ Microcytosis 1+ Sodium Potassium Chloride Carbon Dioxide Anion Gap BUN Creatinine GFR Calculation BUN/Creatinine Ratio Glucose POC Glucose 293 H 265 H Calculated Osmolality Calcium Magnesium Prealbumin 12/26/16 11:11 WBC RBC Hgb Hct MCV MCH MCHC RDW Plt Count MPV Neut % (Auto) Lymph % (Auto) [place] % (Auto) Eos % (Auto) Baso % (Auto) Neut # (Auto) Lymph # (Auto) [place] # (Auto) Eos # (Auto) Baso # (Auto) Total Counted Immature Gran % Nucleated RBC % Immature Gran # Segmented Neutrophils Lymphocytes Monocytes Eosinophils Nucleated RBCs # Platelet Estimate Hypochromasia Microcytosis Sodium Potassium Chloride Carbon Dioxide Anion Gap BUN Creatinine GFR Calculation BUN/Creatinine Ratio Glucose POC Glucose 333 H Calculated Osmolality Calcium Magnesium Prealbumin - Reports Microbiology: Microbiology 12/23/16 19:09 Blood Culture - Preliminary Blood Gram Positive Cocci 12/23/16 19:10 Blood Culture - Preliminary Blood Gram Positive Cocci 12/25/16 Unknown MRSA (PCR) - Final Blood MRSA Negative Staph aureus Negative 12/25/16 Unknown MRSA (PCR) - Final Blood MRSA Negative Staph aureus Negative 12/23/16 Unknown Urine Culture - Preliminary Urine,Catheterized Yeast - Diagnostic Findings Procedure: Chest x-ray: image reviewed by me, report reviewed by me (No consolidation)
[2016-12-26] MEDS: PIPERACILLIN/TAZOBACTAM 3,375 MG in SODIUM CHLORIDE 0.9% 100 ML IV SCH ×2 (14:11→21:46)
[2016-12-26] MEDS: INSULIN GLARGINE 100 UNIT/ML SUBCUT SCH (21:48)
[2016-12-27] MEDS: INSULIN LISPRO 100 UNIT/ML SUBCUT SCH ×6 (02:09→21:57)
[2016-12-27] MEDS: PIPERACILLIN/TAZOBACTAM 3,375 MG in SODIUM CHLORIDE 0.9% 100 ML IV SCH ×3 (06:31→22:00)
--- NOTE | 2016-12-27 07:22 | General Surgery Progress Note ---
Assessment and Plan (1) Sacral decubitus ulcer Status: Acute Assessment and plan: The patient's sacral wound is starting to slough its necrotic tissue. I think we can do a little bit of bedside debridement to assist with the process without having any discomfort to the patient. I will proceed with doing this later today and continue current care otherwise. I did discuss the patient's situation again with his daughter yesterday and told her about the blood cultures being positive which the most likely source would be the sacral wound. She understands that this will be a source of recurrent infection because of the patient's immobility and pressure necrosis that will occur on the tissues there. She does not want to be aggressive with a large operative surgical debridement but I think we can get it cleaned up some at the bedside. Current Visit: Yes Subjective Patient reports: Present: no new complaints, afebrile Exam - Constitutional Vitals: Period Temp Pulse Resp BP Sys/Camara Pulse Ox Last 24 Hr 96.3 F-97.4 F 99-117 12-23 90-133/56-85 96-100 General appearance: no acute distress, over weight - Head Head exam: Present: normal inspection, normocephalic - Eye Eye exam: Present: EOMI - ENT ENT exam: Present: normal exam Mouth exam: Present: normal external inspection, normal voice - Neck Neck exam: Present: normal inspection, trachea midline - Respiratory Respiratory exam: Present: clear to auscultation bilaterally. Absent: accessory muscle use, chest wall tenderness - Cardiovascular Cardiovascular exam: Present: tachycardia. Absent: irregular rhythm, RRR, systolic murmur - GI/Abdominal GI/Abdominal exam: Present: soft. Absent: tenderness, rebound - Anus/Rectum Anus/Rectum: other (The sacral wound is sloughing. There is no purulent drainage. There is no surrounding erythema.) - Extremities Exam Extremities exam: Present: normal inspection, normal capillary refill - Back Exam Back exam: Present: normal inspection - Neurological Exam Neurological exam: Present: alert, oriented X3 Speech: Present: normal - Skin Skin exam: Present: normal color, warm Results - Labs CBC & BMP: 12/26/16 03:30 12/26/16 03:30
[2016-12-27] MEDS: DEXTROSE 5% 1,000 ML IV SCH ×2 (09:11→18:19)
[2016-12-27] MEDS: DOCUSATE SODIUM 100 MG CAPSULE PO SCH ×2 (09:12→21:37)
[2016-12-27] MEDS: CLOPIDOGREL 75 MG TABLET PO SCH (09:12)
[2016-12-27] MEDS: VALPROIC ACID 250 MG/5 ML UDCUP PO SCH ×2 (09:12→21:37)
[2016-12-27] MEDS: TAMSULOSIN 0.4 MG CAPSULE PO SCH (09:12)
[2016-12-27] MEDS: BISACODYL 5 MG TABLET PO SCH (09:12)
[2016-12-27] MEDS: INSULIN GLARGINE 100 UNIT/ML SUBCUT SCH ×2 (09:12→21:37)
[2016-12-27] MEDS: ASPIRIN CHEW 81 MG TABLET PO SCH (09:12)
[2016-12-27] MEDS: COLLAGENASE OINT 30 GM TUBE TOP SCH (09:13)
--- NOTE | 2016-12-27 09:42 | Infectious Disease Progress ---
Assessment and Plan (1) Bacteremia Status: Acute Assessment and plan: 2 distinct evidence of staph hominis isolated in blood, suggesting contamination. The patient did have a clear source of infection that is his sacral ulcer. He was also admitted with septic shock, so I am inclined to treat his true bacteremia. Recommendations: 1. Continue vancomycin therapy 2. Monitor vancomycin levels and also renal function closely 3. Follow-up results of repeat blood cultures Current Visit: Yes (2) Sacral decubitus ulcer Status: Acute Assessment and plan: Probable source of bloodstream infection; he is having debridement today. Current Visit: Yes (3) Uncontrolled type 2 diabetes mellitus with hyperglycemia Status: Acute Current Visit: Yes (4) Altered mental status Status: Chronic Assessment and plan: Likely due to sepsis. Current Visit: No Infectious Disease - PN: Subj Interval history: Chart reviewed, no new events since yesterday. Patient afebrile. He is going to have bedside debridement of his sacral ulcer today. Infectious Disease Exam (PN) - Constitutional Vitals: Temp Pulse Resp BP Pulse Ox 96.3 F L 107 H 18 105/66 91 L 12/27/16 03:00 12/27/16 06:00 12/27/16 06:00 12/27/16 06:00 12/27/16 06:00 General appearance: no acute distress, over weight Exam: General appearance: no acute distress, drowsy - Eye Eye exam: Present: EOMI. no icterus Pupils: Present: TREVOR - Respiratory Respiratory exam: vesicular BS, no crepitations or wheezes - Cardiovascular Cardiovascular exam: regular rate and rhythm, no murmurs - GI/Abdominal GI/Abdominal exam: normal bowel sounds, soft, non-tender, no organomegaly or mass - Extremities Exam Extremities exam: Mild bilateral lower extremity edema - Skin Skin exam: Unchanged rash to ventral aspect of forearms and to sides of abdomen Results - Labs CBC & BMP: 12/26/16 03:30 12/26/16 03:30 Lab Results: I have reviewed the past 24 hour labs (2 different staph hominis isolates in blood)
[2016-12-27] MEDS ORDERED: INSULIN REGULAR 100 UNIT/ML IV ONE (10:21)
[2016-12-27] MEDS: VANCOMYCIN INJ 1,500 MG in SODIUM CHLORIDE 0.9% 500 ML IV SCH ×2 (10:51→22:00)
--- NOTE | 2016-12-27 15:56 | Hospitalist Progress Note ---
Assessment and Plan (1) Bacteremia Status: Acute Assessment and plan: Came back staph hominis which sometimes can be a contaminant. Will defer to Dr. Ash, continue vancomycin, repeat blood cultures negative Current Visit: Yes (2) Hypernatremia Problem details: Continue free water replacement. Status: Acute Assessment and plan: change to D5w at 100 ml/hr and free water thru peg tube repeat bmp in am Current Visit: No (3) Altered mental status Status: Chronic Assessment and plan: not sure what his baseline is has severe mental disorder, brother called and can be reached [phone] Current Visit: No (4) Septic shock Status: Acute Assessment and plan: due to sacral wound with bacteremia, blood cx growing staph hominis Current Visit: No (5) Diabetes mellitus Status: Acute Assessment and plan: bs elevated and cont lantus 20 units sq bid, give 8 unit of IV insulin Current Visit: No (6) Moderate malnutrition Status: Acute Assessment and plan: cont tube feeding Current Visit: No (7) Pancytopenia Status: Acute Assessment and plan: repeat cbc in am Current Visit: No (8) Sacral decubitus ulcer Status: Acute Assessment and plan: needs debridement but daughter does not want to do anything more aggressive Current Visit: Yes Hospitalist: Subjective Interval history: Attempted to call patient's daughter Ann 4 times last night. The 2 times a culture today says his number is no longer in service. Dr. Bernal and I discussed case. He debrided what he could at the bedside. Blood sugars are still not well controlled. Wrote for IV insulin 1. Exam - Constitutional Vitals: Period Temp Pulse Resp BP Sys/Camara Pulse Ox Last 24 Hr 96.3 F-99.3 F 89-117 14-24 90-138/52-76 91-100 Exam: Heart Rate-[tachy] Lungs-[CTAB] GI-[+bs soft, NT] Ext-[no edema] Neuro [lethargic not following commands psych [cannot evaluate due to lethargy. General [no acute distress] Results - Labs CBC & BMP: 12/26/16 03:30 12/26/16 03:30 Lab Results: I have reviewed the past 24 hour labs Labs: Blood cultures growing staph hominis but repeat blood cultures negative no growth
[2016-12-27] MEDS: ZIPRASIDONE 20 MG CAPSULE PO PRN ×2 (16:12→23:44)
[2016-12-28] MEDS: INSULIN LISPRO 100 UNIT/ML SUBCUT SCH ×6 (02:15→21:15)
[2016-12-28 03:39] LABS: Basophils % 0.3 % (0.0-0.8); Eosinophils # 0.1 10*3/uL (0.0-0.87); Eosinophils % 3.1 % (0.00-10.9); Hematocrit 23.6 VOL% (42.0-52.0); Hemoglobin 7.4 GM/DL (14.0-18.0); Immature Granulocytes % 0.7 %; Immature Granulocytes Absolute 0.02 #; Mean Corpuscular HGB Conc 31.4 GM/DL (32-36); Mean Corpuscular Hemoglobin 32 PG (27-34); Mean Corpuscular Volume 102.6 FL (87-102); Mean Platelet Volume 11.5 FL (9.6-12.0); Monocytes # 0.2 10*3/uL (0.11-0.8); Monocytes % 5.2 % (1.7-12.7); Neutrophils # 1.6 10*3/uL (1.4-7.4); Neutrophils % 56.7 % (38.7-73.9); Platelet Count 46 T/CUMM (130-400); White Blood Count 2.9 T/CUMM (4-12)
[2016-12-28 04:05] LABS: Calcium 7.8 MG/DL (8.5-10.1); Magnesium 1.6 MG/DL (1.8-2.4); Osmolality,Calculated 297.1 MOS/KG (273-304); Potassium 3.8 MMOL/L (3.5-5.1)
[2016-12-28 04:08] LABS: Eosinophils 4 % (0-10); Lymphocytes 30 % (20-55); Platelet Estimate Decreased; Segmented Neutrophils 63 % (50-85); Total Cells Counted 100
[2016-12-28 04:09] LABS: Hypochromasia 1+; Microcytosis Slight
[2016-12-28] MEDS: DEXTROSE 5% 1,000 ML IV SCH (04:43)
[2016-12-28] MEDS: PIPERACILLIN/TAZOBACTAM 3,375 MG in SODIUM CHLORIDE 0.9% 100 ML IV SCH ×3 (06:12→21:16)
--- NOTE | 2016-12-28 08:26 | General Surgery Progress Note ---
Assessment and Plan (1) Sacral decubitus ulcer Status: Acute Assessment and plan: Patient has a sacral wound with some residual necrotic tissue. It was debrided yesterday at the bedside. No further debridement or drainage is needed from infection control standpoint in my opinion. I do not think it is worthwhile to be overly aggressive surgically in this patient and his family does not wish for him to undergo any invasive procedures such as an operative debridement. I will continue to follow the wound and I am okay with him going to [facility] if a bed is available and insurance approval was obtained. Current Visit: Yes Subjective Patient reports: Present: no new complaints, afebrile Narrative: A bedside debridement was performed on the sacral decubitus wound yesterday. The patient tolerated the procedure well. Exam - Constitutional Vitals: Period Temp Pulse Resp BP Sys/Camara Pulse Ox Last 24 Hr 97.0 F-98.0 F 87-114 11-23 90-144/50-85 92-100 General appearance: no acute distress, over weight - Head Head exam: Present: normal inspection, normocephalic - Eye Eye exam: Present: EOMI - ENT ENT exam: Present: normal exam Mouth exam: Present: normal external inspection, normal voice - Neck Neck exam: Present: normal inspection, trachea midline - Respiratory Respiratory exam: Present: clear to auscultation bilaterally. Absent: accessory muscle use, chest wall tenderness - Cardiovascular Cardiovascular exam: Present: tachycardia. Absent: irregular rhythm, systolic murmur - GI/Abdominal GI/Abdominal exam: Present: soft. Absent: tenderness, rebound - Anus/Rectum Anus/Rectum: other (Sacral decubitus wound has some residual necrotic tissue but no pus or infection) - Extremities Exam Extremities exam: Present: normal inspection, normal capillary refill - Back Exam Back exam: Present: normal inspection - Neurological Exam Neurological exam: Present: alert Speech: Present: normal - Skin Skin exam: Present: normal color, warm Results - Labs CBC & BMP: 12/28/16 03:25 12/28/16 03:25
[2016-12-28] MEDS ORDERED: SODIUM CHLORIDE 0.9% 250 ML IV PRN (08:53)
[2016-12-28] MEDS: TAMSULOSIN 0.4 MG CAPSULE PO SCH (09:14)
[2016-12-28] MEDS: VALPROIC ACID 250 MG/5 ML UDCUP PO SCH (09:14)
[2016-12-28] MEDS: DOCUSATE SODIUM 100 MG CAPSULE PO SCH ×2 (09:14→21:02)
[2016-12-28] MEDS: BISACODYL 5 MG TABLET PO SCH (09:14)
[2016-12-28] MEDS: INSULIN GLARGINE 100 UNIT/ML SUBCUT SCH ×2 (09:14→21:01)
[2016-12-28] MEDS: COLLAGENASE OINT 30 GM TUBE TOP SCH (09:15)
[2016-12-28] MEDS: VANCOMYCIN INJ 1,500 MG in SODIUM CHLORIDE 0.9% 500 ML IV SCH ×2 (09:22→21:16)
--- NOTE | 2016-12-28 10:49 | Infectious Disease Progress ---
Assessment and Plan (1) Bacteremia Status: Acute Assessment and plan: 2 distinct isolates of staph hominis in blood, suggesting contamination. However the patient did have a clear source of infection that is his sacral ulcer. He was also admitted with septic shock, so I am inclined to treat this as true bacteremia. Recommendations: 1. Continue vancomycin therapy 2. Monitor vancomycin levels and also renal function closely 3. Follow-up results of repeat blood cultures Current Visit: Yes (2) Sacral decubitus ulcer Status: Acute Assessment and plan: Probable source of bloodstream infection; he is had debridement yesterday. Current Visit: Yes (3) Uncontrolled type 2 diabetes mellitus with hyperglycemia Status: Acute Current Visit: Yes (4) Altered mental status Status: Chronic Assessment and plan: Likely due to sepsis. Current Visit: No Infectious Disease - PN: Subj Interval history: Patient had a debridement of sacral ulcer at bedside yesterday, he is awaiting placement at [facility]. The patient has been afebrile. No other new events. Infectious Disease Exam (PN) - Constitutional Vitals: Temp Pulse Resp BP Pulse Ox 97.0 F L 108 H 16 144/70 100 12/28/16 04:00 12/28/16 07:00 12/28/16 07:00 12/28/16 07:00 12/28/16 07:00 General appearance: no acute distress, over weight Exam: General appearance: no acute distress, drowsy but arousable, he does not say much - Eye Eye exam: Present: EOMI. no icterus Pupils: Present: TREVOR - Respiratory Respiratory exam: vesicular BS, no crepitations or wheezes - Cardiovascular Cardiovascular exam: regular rate and rhythm, no murmurs - GI/Abdominal GI/Abdominal exam: normal bowel sounds, soft, non-tender, no organomegaly or mass - Extremities Exam Extremities exam: Mild bilateral lower extremity edema - Skin Skin exam: Unchanged rash to ventral aspect of forearms and to sides of abdomen Results - Labs CBC & BMP: 12/28/16 03:25 12/28/16 03:25 Lab Results: I have reviewed the past 24 hour labs
--- NOTE | 2016-12-28 11:32 | Physician Query Form ---
CLICK EDIT DOCUMENT TO SELECT QUERY ANSWER --> OK --> SIGN Jackie Jorgensen RN, CCDS Certified Clinical Pathology Supervisor W) [phone] (f) [phone] [email or web address]: Make your selection(s) from the choices in EACH section by typing an "x" and enter comments in the comment section. Please use your independent medical judgment in providing your response. This request does not imply that any particular answer is desired or expected. CLINICAL INDICATORS: (Providers should not edit this section) "A bedside debridement was performed on the sacral decubitus wound yesterday" Please provide further clarification regarding debridement: TYPE: (x) Excisional (cutting out tissue such as devitalized tissue, necrosis, or slough) ( ) Non-Excisional (removal of loose tissue fragments, scrubbing, Versajet) ( ) Incision & Drainage only performed DEPTH: (x) Skin (x) Subcutaneous tissue ( ) Fascia ( ) Muscle ( ) Joint ( ) Tendon ( ) Bone ( ) Bursa & ligaments ( ) Nail ( ) Other, please specify: ( ) Clinically unable to determine REMOVED: ( ) Necrotic tissue ( ) Gangrenous tissue ( ) Slough ( ) Other, please specify: COMMENTS: PLEASE ALSO DOCUMENT RESPONSE IN PROGRESS NOTES AND/OR DISCHARGE SUMMARY Use of terms such as suspected, likely, or probable (associated with a specific diagnosis that is being evaluated, monitored, or treated as if it exists) are acceptable and can be restated in the discharge summary if not ruled out. MTDD
--- NOTE | 2016-12-28 11:40 | Hospitalist Progress Note ---
Assessment and Plan (1) Bacteremia Status: Acute Assessment and plan: staph hominis which will be treated with vancomycin IV for 2 weeks from 12/26 Current Visit: Yes (2) Hypernatremia Problem details: Continue free water replacement. Status: Acute Assessment and plan: resolved Current Visit: No (3) Septic shock Status: Acute Assessment and plan: due to sacral wound with bacteremia, blood cx growing staph hominis Current Visit: No (4) Diabetes mellitus Status: Acute Assessment and plan: bs increase lantus, restart metformin, stop D5 Current Visit: No (5) Moderate malnutrition Status: Acute Assessment and plan: cont tube feeding Current Visit: No (6) Pancytopenia Status: Acute Assessment and plan: stop asa and plavix, check b12 and folate, Dr Joe and Dr De La Torre consulted. us of abdomen Current Visit: No (7) Sacral decubitus ulcer Status: Acute Assessment and plan: s/p debridement Current Visit: Yes (8) Acute blood loss anemia Status: Acute Assessment and plan: Inventory Control Specialist Dr. Joe, transfuse 2 units packed red blood cells Current Visit: Yes Hospitalist: Subjective Interval history: Discussed case with Dr. Ash and Dr. Bernal. We will DC his [place] today. He has been accepted over at [facility] but we will not send up today due to low hemoglobin. I have held his aspirin and Plavix. Will ask Dr. Joe to see him. Exam - Constitutional Vitals: Period Temp Pulse Resp BP Sys/Camara Pulse Ox Last 24 Hr 97.0 F-98.3 F 87-118 11-23 78-144/43-85 92-100 Exam: Heart Rate-[tachy] Lungs-[CTAB] GI-[+bs soft, NT] Ext-[no edema] Neuro [lethargic not following commands psych [cannot evaluate due to lethargy. General [no acute distress] skin, decubitus debrided by Dr. bernal Results - Labs CBC & BMP: 12/28/16 03:25 12/28/16 03:25 Lab Results: I have reviewed the past 24 hour labs
[2016-12-28 12:27] LABS: Folate 6.7 NG/ML (5.4-24.0)
--- NOTE | 2016-12-28 12:34 | Ultrasound Report ---
US abdomen Indication: Cirrhosis Comparison: CT abdomen pelvis dated November 27, 2016 Technique: Multiple longitudinal and transverse real-time sonographic images of the abdomen are obtained. Findings: The liver measures 15.7 cm and demonstrates subtle nodular appearance. Status post cholecystectomy. The common bile duct measures 0.39 cm in diameter. There is no evidence of intrahepatic ductal dilatation. The right and left kidneys measure 13.8 cm and 13.9 cm, respectively. 1.3 cm cyst within the superior pole the right kidney. No evidence of hydronephrosis. The spleen measures 17 cm without focal abnormality. Evaluation of the pancreas limited secondary to bowel gas.. IVC and aorta: Visualized portions grossly unremarkable. Trace perihepatic ascites. IMPRESSION: There is subtle nodular appearance of the liver consistent with history of cirrhosis. There is splenomegaly as well as trace perihepatic ascites. There is a small right renal cyst. PROCEDURE INTERPRETED AT [facility] DEPARTMENT OF RADIOLOGY Final Report Signed by: Dr Randy Kent
--- NOTE | 2016-12-28 13:37 | Gastrointestinal Progress Note ---
Assessment and Plan (1) Chronic erosive gastritis Status: Acute Assessment and plan: This patient does have erosive gastritis which was documented on his previous EGD done on 12/09/16 about 19 days ago. While this could be a source for his anemia his hematocrit actually previously this admission have been 36 and has drifted down without gross evidence of rectal bleeding down to its current level of 23%. His stool is guaiac negative and this may indicate a hemolysis/ DIC or septic type picture more than a true GI bleed. He certainly has some echotexture changes in his liver and a chronic low platelet count that might be indicative of an underlying cirrhosis. He does not have nodularity of the liver and no varices were noted on his EGD. Certainly cirrhosis might be part of the picture since we do not have a reliable history on this gentleman. I do not think the issue is significant enough to desire a liver biopsy to answer at this point. Agree with hematology oncology consultation to see if they have any further ideas other than discontinuation of the aspirin and Plavix and optimization of his antibiotic coverage by Dr. Esquivel who is already on the case. Current Visit: Yes (2) Pancytopenia Status: Acute Assessment and plan: As noted above. There may be drug-induced bone marrow suppression versus infiltrative bone marrow process versus a septic/DIC type picture presenting at this time. Would suggest that the Plavix and aspirin might need to be discontinued to keep him from bleeding significantly at this point with his low platelet count. Current Visit: No (3) Dysphagia Status: Acute Assessment and plan: The patient continues to use his PEG tube for feeds. It is anticipated he will need this for a while. This was recently placed on 12/09/16 by myself. No repeat endoscopy will likely be required at this point. He does not appear to be having active hematemesis or coffee-ground residual or blood in the stool and is guaiac negative today. This may change shortly. Current Visit: No Gastroenterology - PN: Subj Interval history: This patient is well-known to me from his prior hospitalization at which time I actually performed EGD with PEG tube placement on 12/09/16 given due to inability to comply with swallowing studies and dysphagia. Please see my full consultation from 12/08/16 and the subsequent PEG tube placement on 12/09/16. Dr. Alva has asked me specifically if I thought this patient had cirrhosis as a cause for his thrombocytopenia. The liver does show some fatty versus echotexture changes but no masses on previous evaluation on 11/27/16. The gallbladder is surgically absent but there are no masses in the liver. Liver enzymes show a bilirubin of 1.1 with a alkaline phosphatase 184, ALT of 44 and AST of 59 on 12/24/16. The MCV is elevated at between 102.6 and 109.7 which can be associated with cirrhosis. Earlier in the admission his platelet count had gone up to 112 and is now dropped down to 46, more likely secondary to potential bleeding versus exposure to aspirin and Plavix. Patient's stool is frequent but brown and guaiac negative on physical examination. His hematocrit this admission is dropped from 36.1 down to 23.6%. He is due to get some blood. His white blood cell count however has also dropped from 10.9 down to 2.9. This may be associated with his bacteremia, Dr. Alva and I have discussed this in she is going to be initiating a DIC workup while Dr. De La Torre is being consulted for the pancytopenia. I would think that with a hematocrit drop from 36.1-23.6 he would have had gross evidence of melena or bright red blood over 5 day period if this were GI bleeding with a guaiac + stool on PE ( his is negative). His only complaint is that he is having some left upper quadrant tenderness to deep palpation. He is tolerating his tube feeds adequately. No coffee-ground in the aspirate. The patient's PEG tube placement did demonstrate some erosive gastritis that was moderate in nature and so bleeding from this area is not unexpected in the face of anticoagulation with aspirin and Plavix. Exam (Progress Note) - Constitutional Vitals: Period Temp Pulse Resp BP Sys/Camara Pulse Ox Last 24 Hr 97.0 F-98.3 F 87-118 11-23 78-144/43-85 92-100 General appearance: no acute distress Exam: The patient is lethargic but much improved from when I saw him in the hospital previously on 12/08/16, the patient can actually talk and answer simple questions - Head Head exam: Present: normocephalic, atraumatic - Eye Eye exam: Present: EOMI - ENT ENT exam: Present: normal exam - Respiratory Respiratory exam: Present: clear to auscultation bilaterally. Absent: wheezes - Cardiovascular Cardiovascular exam: Present: regular rate and rhythm - GI/Abdominal GI/Abdominal exam: Present: normal bowel sounds, tenderness (Mild tenderness to deep palpation in the left upper quadrant PEG tube site appears without erythema or drainage, pain, spends well.), soft. Absent: distended, guarding, rebound - Extremities Exam Extremities exam: Present: edema - Neurological Exam Neurological exam: Present: alert, altered (Some psychomotor retardation, the patient can answer simple questions.) - Psychiatric Psychiatric exam: Present: flat affect - Skin Skin exam: Present: warm Results - Labs CBC & BMP: 12/28/16 03:25 12/28/16 03:25
[2016-12-28] MEDS: metFORMIN 500 MG TABLET PO SCH (18:18)
[2016-12-28 18:25] LABS: D-Dimer 2.7 MG/L FEU; INR 1.1; PT Patient Result 11.6 SECS; Partial Thromboplastin Time 26.4 SECS (0-40)
[2016-12-28 21:35] LABS: Hematocrit 30.2 VOL% (42.0-52.0)
[2016-12-28 21:37] LABS: Hemoglobin 9.6 GM/DL (14.0-18.0)
[2016-12-29] MEDS: INSULIN LISPRO 100 UNIT/ML SUBCUT SCH ×4 (01:46→14:27)
[2016-12-29] MEDS: PIPERACILLIN/TAZOBACTAM 3,375 MG in SODIUM CHLORIDE 0.9% 100 ML IV SCH ×2 (06:45→14:27)
[2016-12-29 06:47] LABS: Hemoglobin 9.4 GM/DL (14.0-18.0); Red Blood Count 3.48 MC/CUMM (3.8-5.5); White Blood Count 6.2 T/CUMM (4-12)
[2016-12-29 06:48] LABS: Basophils % 0.5 % (0.0-0.8); Eosinophils # 0.2 10*3/uL (0.0-0.87); Eosinophils % 2.9 % (0.00-10.9); Immature Granulocytes % 0.7 %; Immature Granulocytes Absolute 0.04 #; Lymphocytes # 1.1 10*3/uL (1.4-4.0); Lymphocytes % 17.1 % (21.2-54.2); Mean Corpuscular HGB Conc 33.6 GM/DL (32-36); Mean Corpuscular Hemoglobin 27 PG (27-34); Mean Corpuscular Volume 80.5 FL (87-102); Mean Platelet Volume 10.5 FL (9.6-12.0); Monocytes # 0.8 10*3/uL (0.11-0.8); Monocytes % 12.7 % (1.7-12.7); NRBC # 0.03 10*3/uL; Neutrophils # 4.1 10*3/uL (1.4-7.4); Neutrophils % 66.1 % (38.7-73.9); Platelet Count 165 T/CUMM (130-400)
[2016-12-29 07:18] LABS: Hypochromasia Slight
[2016-12-29 07:23] LABS: Magnesium 1.9 MG/DL (1.8-2.4); Prealbumin 13.1 MG/DL (20-40)
[2016-12-29 07:30] LABS: Calcium 7.8 MG/DL (8.5-10.1); Magnesium 1.9 MG/DL (1.8-2.4); Osmolality,Calculated 277.7 MOS/KG (273-304)
[2016-12-29 08:31] LABS: Basophils % 0.3 % (0.0-0.8); Eosinophils # 0.1 10*3/uL (0.0-0.87); Eosinophils % 2.8 % (0.00-10.9); Hematocrit 32.8 VOL% (42.0-52.0); Hemoglobin 10.5 GM/DL (14.0-18.0); Immature Granulocytes % 0.6 %; Immature Granulocytes Absolute 0.02 #; Lymphocytes # 0.8 10*3/uL (1.4-4.0); Lymphocytes % 24.4 % (21.2-54.2); Mean Corpuscular Hemoglobin 31 PG (27-34); Mean Corpuscular Volume 96.8 FL (87-102); Mean Platelet Volume 12.3 FL (9.6-12.0); Monocytes # 0.2 10*3/uL (0.11-0.8); Monocytes % 5.7 % (1.7-12.7); Neutrophils # 2.1 10*3/uL (1.4-7.4); Neutrophils % 66.2 % (38.7-73.9); Red Blood Count 3.39 MC/CUMM (3.8-5.5); Red Cell Distribution Width 20.7 % (9.3-17.3); White Blood Count 3.2 T/CUMM (4-12)
[2016-12-29 08:32] LABS: Platelet Count 71 T/CUMM (130-400)
[2016-12-29] MEDS: metFORMIN 500 MG TABLET PO SCH (08:40)
[2016-12-29] MEDS: INSULIN GLARGINE 100 UNIT/ML SUBCUT SCH (08:40)
[2016-12-29] MEDS: TAMSULOSIN 0.4 MG CAPSULE PO SCH (08:40)
[2016-12-29] MEDS: COLLAGENASE OINT 30 GM TUBE TOP SCH (08:41)
[2016-12-29] MEDS: BISACODYL 5 MG TABLET PO SCH (08:42)
[2016-12-29] MEDS: DOCUSATE SODIUM 100 MG CAPSULE PO SCH (08:42)
[2016-12-29] MEDS: VANCOMYCIN INJ 1,500 MG in SODIUM CHLORIDE 0.9% 500 ML IV SCH (11:28)
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
--- NOTE | 2016-12-29 12:16 | Gastrointestinal Progress Note ---
Assessment and Plan (1) Chronic erosive gastritis Status: Acute Assessment and plan: This patient does have erosive gastritis which was documented on his previous EGD done on 12/09/16 about 19 days ago. While this could be a source for his anemia his hematocrit actually previously this admission have been 36 and has drifted down without gross evidence of rectal bleeding down to its current level of 23%. His stool is guaiac negative and this may indicate a hemolysis/ DIC or septic type picture more than a true GI bleed. He certainly has some echotexture changes in his liver and a chronic low platelet count that might be indicative of an underlying cirrhosis. He does not have nodularity of the liver and no varices were noted on his EGD. Certainly cirrhosis might be part of the picture since we do not have a reliable history on this gentleman. I do not think the issue is significant enough to desire a liver biopsy to answer at this point. Agree with hematology oncology consultation to see if they have any further ideas other than discontinuation of the aspirin and Plavix and optimization of his antibiotic coverage by Dr. Esquivel who is already on the case. 12/29/16--as mentioned above the patient's pancytopenia appears to have made a remarkable recovery with now a normal white blood cell count 6.5 and platelets up to 165. I have asked the nurse to redraw this blood to see if this is actually the sample associated with this patient. Oncology has evaluated the patient and does not feel as much more to offer. He is due to go to [facility] today pending the results of the CBC. He does not appear to be having any overt GI bleeding. He does have the gastritis as noted above seen on upper endoscopy done 12/09/16 and this is being treated. Current Visit: Yes (2) Pancytopenia Status: Acute Assessment and plan: As noted above. There may be drug-induced bone marrow suppression versus infiltrative bone marrow process versus a septic/DIC type picture presenting at this time. Would suggest that the Plavix and aspirin might need to be discontinued to keep him from bleeding significantly at this point with his low platelet count. 12/29/16--Extreme improvement demonstrated by today's CBC--let us recheck that this is accurate with another CBC. He is due for transfer over to [facility] today otherwise. Current Visit: No (3) Dysphagia Status: Acute Assessment and plan: The patient continues to use his PEG tube for feeds. It is anticipated he will need this for a while. This was recently placed on 12/09/16 by myself. No repeat endoscopy will likely be required at this point. He does not appear to be having active hematemesis or coffee-ground residual or blood in the stool and is guaiac negative today. This may change shortly. 12/29/16--Patient appears stable from a GI standpoint he can continue getting his tube feeds. He is due for transfer over to [facility] as mentioned above. Current Visit: No Gastroenterology - PN: Subj Interval history: The CBC seems to demonstrate a rather miraculous recovery of the patient's white blood cell count and platelet function after receiving 2 unit transfusion yesterday. He did not receive any platelets. The anticoagulation was discontinued yesterday. I am asking the nursing staff to recheck a CBC to see if her redraw is consistent with the initial blood. The patient does not appear to be as awake as he was yesterday. Exam (Progress Note) - Constitutional Vitals: Period Temp Pulse Resp BP Sys/Camara Pulse Ox Last 24 Hr 97.0 F-98.1 F 89-121 11-20 86-147/50-85 93-100 General appearance: no acute distress, over weight - Respiratory Respiratory exam: Present: clear to auscultation bilaterally - Cardiovascular Cardiovascular exam: Present: regular rate and rhythm - GI/Abdominal GI/Abdominal exam: Present: normal bowel sounds, soft, other (PEG tube in place in the left upper quadrant.). Absent: distended, tenderness, rebound - Extremities Exam Extremities exam: Present: edema - Neurological Exam Neurological exam: Present: altered (Patient somnolent) - Psychiatric Psychiatric exam: Present: flat affect - Skin Skin exam: Present: warm Results - Labs CBC & BMP: 12/29/16 04:00 12/29/16 04:00
--- NOTE | 2016-12-29 12:19 | Infectious Disease Progress ---
Assessment and Plan (1) Bacteremia Status: Acute Assessment and plan: 2 distinct isolates of staph hominis in blood, suggesting contamination. However the patient did have a clear source of infection that is his sacral ulcer. He was also admitted with septic shock, so I am inclined to treat this as true bacteremia. Recommendations: 1. Continue vancomycin therapy 2. Monitor vancomycin levels and also renal function closely 3. Follow-up finalized results of repeat blood cultures Current Visit: Yes (2) Sacral decubitus ulcer Status: Acute Assessment and plan: Probable source of bloodstream infection; he is had debridement yesterday. We will follow-up cultures which are pending. Current Visit: Yes (3) Uncontrolled type 2 diabetes mellitus with hyperglycemia Status: Acute Current Visit: Yes (4) Altered mental status Status: Chronic Assessment and plan: Likely due to sepsis, improved. Current Visit: No Infectious Disease - PN: Subj Interval history: Patient doing fair, afebrile. He is going to be transferred to [facility] today. Infectious Disease Exam (PN) - Constitutional Vitals: Temp Pulse Resp BP Pulse Ox 97.6 F 115 H 15 86/50 93 L 12/29/16 04:00 12/29/16 07:00 12/29/16 07:00 12/29/16 07:00 12/29/16 07:00 General appearance: no acute distress, over weight Exam: General appearance: no acute distress, drowsy but arousable, a little more talkative today - Eye Eye exam: Present: EOMI. no icterus Pupils: Present: TREVOR - Respiratory Respiratory exam: vesicular BS, no crepitations or wheezes - Cardiovascular Cardiovascular exam: regular rate and rhythm, no murmurs - GI/Abdominal GI/Abdominal exam: normal bowel sounds, soft, non-tender, no organomegaly or mass - Extremities Exam Extremities exam: Mild bilateral lower extremity edema - Skin Skin exam: Unchanged rash to ventral aspect of forearms and to sides of abdomen Results - Labs CBC & BMP: 12/29/16 08:21 12/29/16 04:00 Lab Results: I have reviewed the past 24 hour labs
--- NOTE | 2016-12-29 12:23 | Discharge Summary ---
Hospital Course - Hospital Course Hospital Course: 61-year-old male with a history of schizophrenia, hypertension, insulin-dependent diabetes and pancytopenia presents to emergency room with altered mental status. Patient was noted to be in septic shock. Source of his infection was thought to be secondary to his sacral decubitus. Patient was on a lot of medications for bipolar schizophrenia. These medications are making him rather lethargic and he was not very active after a hip surgery that he recently. Blood cultures grew out staph hominis which we would normally think is a contaminant. He was started on vancomycin IV Dr. Frank was consulted for debridement. Patient's daughter did not want him to have surgical debridement but then became unavailable when his condition worsened. Dr. Frank did bedside debridement of the wound and patient improved. Wound culture culture is growing gram-positive cocci and gram-negative rods. Dr. Esquivel added Zosyn to his IV antibiotic regimen. Because of his pancytopenia I would like to change that to something different but I am awaiting for call back. Patient has been accepted to [facility] for IV antibiotics and extensive wound care and physical therapy. His chart says he has no history of seizures and in another place as he does. We are holding his Depakote for now because I believe it is for schizophrenia. He still rather lethargic even though his numbers are improving. He has pancytopenia and both GI Dr. Joe and hematology Dr. Berrios was consulted. Patient received 2 units packed red blood cells yesterday but was guaiac negative on his occult stool. Both his aspirin and Plavix were discontinued. No history of recent stents were on the chart. His pancytopenia worsened. But improved after stopping both his aspirin and Plavix. Patient's B12 was 758 with a folic acid level 6.7. Dr. Berrios believes that he is his Plavix, aspirin, Norvasc and Geodon which are worsening his pancytopenia. These will hopefully improve after have discontinued them. Patient was severely hyponatremic due to dehydration which resolved with D5W and free water. He also has insulin-dependent diabetes it is hard to control. We have increased his Lantus to twice a day and restarted his metformin. patient will be transferred over to [facility] for further care and treatment. - Time spent with patient Time with patient DS: Greater than 30 minutes (60 min) Diagnosis - Discharge Diagnosis (1) Bacteremia Status: Acute (2) Hypernatremia Status: Acute (3) Septic shock Status: Acute (4) Diabetes mellitus Status: Acute (5) Moderate malnutrition Status: Acute (6) Pancytopenia Status: Acute (7) Sacral decubitus ulcer Status: Acute (8) Acute blood loss anemia Status: Acute Discharge Plan - Discharge Data Disposition: Disch/Xfer-[facility] Term Hos Condition at Discharge: Stable Discharge Diet: other (glucerna 1.5 at 65 ml/hr, with free water at 50 ml/hr) Activity: resume usual activities as tolerated Hygiene: no restrictions Weight Bearing at Discharge: full weight bearing Driving: no restrictions Contact your physician if you experience:: fever over 101 - Discharge Medications New Dextrose 50% [D50] 25 gm IV PRN PRN vial PRN Reason: BG < 70mg/dL per protocol Dextrose 50% [D50] 12.5 gm IV PRN PRN vial PRN Reason: BG 70 - 80 mg/dL per protocol Glucagon 1 mg IM PRN PRN vial PRN Reason: Hypoglycemia w/o IV access Insulin Glargine [Lantus] 27 unit SUBCUT BID unit Insulin Lispro [HumaLOG] See Protocol SUBCUT Q4HR unit Magnesium Sulf Travis [Magnesium Sulfate Inj] 2 gm IV .PER PROTOCOL PRN PRN Reason: Per Protocol Ondansetron Inj [Zofran Inj] 4 mg IV Q4H PRN vial PRN Reason: Nausea Piperacillin/Tazobactam [Zosyn] 3,375 mg IV Q8H vial Vancomycin Inj 1,500 mg IV Q12H vial Albuterol/Ipratropium Neb [Duoneb] 3 ml RESP TX RT Q4H PRN PRN Reason: Shortness Of Breath/Wheezing Collagenase Oint [Santyl Oint] 1 applic TOP DAILY applic metFORMIN [Glucophage] 1,000 mg PO BID W/MEALS tablet Continue Clopidogrel [Plavix] 75 mg PO DAILY Bisacodyl Tab [Dulcolax Tab] 10 mg PO DAILY tablet Docusate Sodium Cap [Colace Cap] 100 mg PO BID capsule Skin Healing Oint (Aquaphor) [Aquaphor] 1 applic TOP PRN PRN #0 applic PRN Reason: Dry Skin Tamsulosin [Flomax] 0.4 mg PO DAILY capsule Acetaminophen Tab [Tylenol Tab] 650 mg PO Q4H PRN PRN Reason: Pain Moderate (4-7) Aspirin Chew Tab 81 mg PO DAILY tablet Collagenase Oint [Santyl Oint] 1 applic TOP DAILY applic Discontinued amLODIPine [Norvasc] 5 mg PO DAILY Valproic Acid Liquid [Depakene] 500 mg PO BID Hydrocodone/Acetaminophen [[place] 10-325 Tablet] 1 each PO Q12H HYDROcodone/ACETAMIN 10-325 [[place] 10-325] 1 tablet PO Q12HR PRN PRN Reason: Pain Insulin Glargine [Lantus] 10 unit SUBCUT DAILY metFORMIN [Glucophage] 500 mg PO BID W/MEALS Multivitamin [Multivitamins] 1 each PO DAILY Ziprasidone Cap [Geodon Cap] 20 mg PO DAILY - Follow Up or Referral - Forms/Instructions Exam - Constitutional Vitals: Period Temp Pulse Resp BP Sys/Camara Pulse Ox Last 24 Hr 96.9 F-98.1 F 89-121 11-20 86-158/50-85 93-100 General appearance: normal weight, no acute distress - Respiratory Respiratory exam: Present: clear to auscultation bilaterally. Absent: rhonchi, wheezes - Cardiovascular Cardiovascular exam: Present: regular rate and rhythm. Absent: systolic murmur - GI/Abdominal GI/Abdominal exam: Present: normal bowel sounds, soft. Absent: tenderness - Neurological Exam Neurological exam: Present: altered Discharge Results Procedures and tests throughout hospitalization: Pending Orders 12/26/16 12:27 Blood Culture Stat 12/27/16 14:45 Wound Culture Routine 12/30/16 04:00 BMP w/ Mg [Basic Metabolic Panel w/Mg] IN AM CBC [Comp Blood Count Auto Diff] IN AM 01/02/17 04:00 Magnesium MOTH Phosphorous Routine Prealbumin MOTH Labs on day of discharge: Labs from last 24 hours 12/29/16 12/29/16 12/29/16 08:21 08:20 06:06 WBC 3.2 L D RBC 3.39 L Hgb 10.5 L Hct 32.8 L MCV 96.8 MCH 31 MCHC 32.0 RDW 20.7 H Plt Count 71 L D MPV 12.3 H Neut % (Auto) 66.2 Lymph % (Auto) 24.4 [place] % (Auto) 5.7 Eos % (Auto) 2.8 Baso % (Auto) 0.3 Neut # (Auto) 2.1 Lymph # (Auto) 0.8 L [place] # (Auto) 0.2 Eos # (Auto) 0.1 Baso # (Auto) 0.0 Immature Gran % 0.6 Nucleated RBC % 0.0 Immature Gran # 0.02 Nucleated RBCs # 0.00 Hypochromasia INR PT Patient/Control Mix Fibrinogen D-Dimer, Quantitative Circ Anticoag PTT Sodium Potassium Chloride Carbon Dioxide Anion Gap BUN Creatinine GFR Calculation BUN/Creatinine Ratio Glucose POC Glucose 236 H Calculated Osmolality Calcium Magnesium Prealbumin Vitamin B12 Folate Vancomycin Trough 19.6 Blood Type Antibody Screen Crossmatch 12/29/16 12/29/16 12/29/16 04:00 04:00 04:00 WBC 6.2 D RBC 3.48 L D Hgb 9.4 L Hct 28.0 L MCV 80.5 L MCH 27 MCHC 33.6 RDW 13.0 Plt Count 165 D MPV 10.5 Neut % (Auto) 66.1 Lymph % (Auto) 17.1 L [place] % (Auto) 12.7 Eos % (Auto) 2.9 Baso % (Auto) 0.5 Neut # (Auto) 4.1 Lymph # (Auto) 1.1 L [place] # (Auto) 0.8 Eos # (Auto) 0.2 Baso # (Auto) 0.0 Immature Gran % 0.7 Nucleated RBC % 0.5 Immature Gran # 0.04 Nucleated RBCs # 0.03 Hypochromasia Slight INR PT Patient/Control Mix Fibrinogen D-Dimer, Quantitative Circ Anticoag PTT Sodium 138 Potassium 4.0 Chloride 104 Carbon Dioxide 26 Anion Gap 12.0 BUN 9 Creatinine 0.80 GFR Calculation 123 BUN/Creatinine Ratio 11.00 Glucose 178 H POC Glucose Calculated Osmolality 277.7 Calcium 7.8 L Magnesium 1.9 1.9 Prealbumin 13.1 L Vitamin B12 Folate Vancomycin Trough Blood Type Antibody Screen Crossmatch 12/29/16 12/28/16 12/28/16 01:29 21:07 21:00 WBC RBC Hgb 9.6 L D Hct 30.2 L MCV MCH MCHC RDW Plt Count MPV Neut % (Auto) Lymph % (Auto) [place] % (Auto) Eos % (Auto) Baso % (Auto) Neut # (Auto) Lymph # (Auto) [place] # (Auto) Eos # (Auto) Baso # (Auto) Immature Gran % Nucleated RBC % Immature Gran # Nucleated RBCs # Hypochromasia INR PT Patient/Control Mix Fibrinogen D-Dimer, Quantitative Circ Anticoag PTT Sodium Potassium Chloride Carbon Dioxide Anion Gap BUN Creatinine GFR Calculation BUN/Creatinine Ratio Glucose POC Glucose 315 H 189 H Calculated Osmolality Calcium Magnesium Prealbumin Vitamin B12 Folate Vancomycin Trough Blood Type Antibody Screen Crossmatch 12/28/16 12/28/16 12/28/16 18:00 17:43 13:39 WBC RBC Hgb Hct MCV MCH MCHC RDW Plt Count MPV Neut % (Auto) Lymph % (Auto) [place] % (Auto) Eos % (Auto) Baso % (Auto) Neut # (Auto) Lymph # (Auto) [place] # (Auto) Eos # (Auto) Baso # (Auto) Immature Gran % Nucleated RBC % Immature Gran # Nucleated RBCs # Hypochromasia INR 1.1 PT Patient/Control Mix 11.6 D Fibrinogen 341 D-Dimer, Quantitative 2.7 Circ Anticoag PTT 26.4 Sodium Potassium Chloride Carbon Dioxide Anion Gap BUN Creatinine GFR Calculation BUN/Creatinine Ratio Glucose POC Glucose 272 H 275 H Calculated Osmolality Calcium Magnesium Prealbumin Vitamin B12 Folate Vancomycin Trough Blood Type Antibody Screen Crossmatch 12/28/16 12/28/16 03:35 03:25 WBC RBC Hgb Hct MCV MCH MCHC RDW Plt Count MPV Neut % (Auto) Lymph % (Auto) [place] % (Auto) Eos % (Auto) Baso % (Auto) Neut # (Auto) Lymph # (Auto) [place] # (Auto) Eos # (Auto) Baso # (Auto) Immature Gran % Nucleated RBC % Immature Gran # Nucleated RBCs # Hypochromasia INR PT Patient/Control Mix Fibrinogen D-Dimer, Quantitative Circ Anticoag PTT Sodium Potassium Chloride Carbon Dioxide Anion Gap BUN Creatinine GFR Calculation BUN/Creatinine Ratio Glucose POC Glucose Calculated Osmolality Calcium Magnesium Prealbumin Vitamin B12 758 Folate 6.7 Vancomycin Trough Blood Type O POSITIVE Antibody Screen Negative Crossmatch See Detail Preliminary micro results at discharge 12/27/16 14:45 Wound Culture - Preliminary Sacrum - Wound Gram Negative Rods Gram Positive Cocci 12/26/16 12:27 Blood Culture - Preliminary Blood No growth at 1 day 12/26/16 12:27 Blood Culture - Preliminary Blood No growth at 1 day DS: Provider Date of admission: 12/23/16 16:26 Primary care physician: . No PCP Attending physician on admission: Odalis Palacio MD Consults: 12/23/16 15:09 Consult to Physician [CONS] Routine Comment: infected decub ulcer, sepsis Consulting Provider: Russell Frank When should Consulting Provider be notified: In am Person Notified: dr frank Date Notified: 12/23/16 Time Notified: 18:35 12/23/16 17:58 Consult to [facility], Educator [CONS] Routine Reason for [employer] Worker: Diabetes Education Initial Insulin Education Consult Comment: INSULIN EDUCATION 12/23/16 18:04 Consult to Pharmacy [CONS] Routine Reason for Pharmacy Consult: Dose/Manage Vancomycin 12/23/16 18:35 Consult to Physician [CONS] Routine Comment: Consulting Provider: 12/24/16 07:17 Consult to Dietitian [CONS] Routine Reason for Dietitian: TF-Initiate/Manage 12/26/16 09:29 Consult to Physician [CONS] Routine Comment: + blood cultures Consulting Provider: Samantha Fierro Consulting Provider Notified: Yes When should Consulting Provider be notified: Now Person Notified: dr esquivel Date Notified: 12/26/16 Time Notified: 09:45 12/27/16 10:20 Consult to Case Mgmt/Social Srvs [CONS] Routine Reason for Case Mgmt/Social Srvs: LTAC Consult Comment: wound care, IV abx 12/28/16 08:52 Consult to Physician [CONS] Routine Comment: gi bleed on asa and plavix Consulting Provider: Daryl Joe Person Notified: [email or web address] Date Notified: 12/28/16 Time Notified: 09:30 12/28/16 11:50 Consult to Physician [CONS] Routine Comment: pancytopenia Consulting Provider: Doug Berrios Person Notified: jayson Date Notified: 12/28/16 Time Notified: 13:30 Consult Notification Comment: office states " pt has seen dr Berrios in hospital in past so I'm gonna send consult to him " Discharging clinician: Erinn Alva MD
[2016-12-29 16:38] VITALS: BP 111/71
--- NOTE | 2016-12-29 17:09 | General Surgery Progress Note ---
Assessment and Plan (1) Sacral decubitus ulcer Status: Acute Assessment and plan: Continue local wound care. The patient is being transferred to [facility]. I will follow him down there. Current Visit: Yes Subjective Patient reports: Present: afebrile Exam - Constitutional Vitals: Period Temp Pulse Resp BP Sys/Camara Pulse Ox Last 24 Hr 96.9 F-97.6 F 100-121 11-20 86-164/50-93 93-100 General appearance: no acute distress, over weight - Head Head exam: Present: normal inspection, normocephalic - Eye Eye exam: Present: EOMI Pupils: Present: TREVOR - ENT ENT exam: Present: normal exam Mouth exam: Present: normal external inspection, normal voice - Neck Neck exam: Present: normal inspection, trachea midline - Respiratory Respiratory exam: Present: clear to auscultation bilaterally. Absent: accessory muscle use, chest wall tenderness - Cardiovascular Cardiovascular exam: Present: tachycardia. Absent: irregular rhythm, systolic murmur - GI/Abdominal GI/Abdominal exam: Present: soft - Anus/Rectum Anus/Rectum: other (Sacral decubitus ulcer is stable) - Extremities Exam Extremities exam: Present: normal inspection, normal capillary refill - Back Exam Back exam: Present: normal inspection - Neurological Exam Neurological exam: Present: alert, oriented X3 Speech: Present: normal - Skin Skin exam: Present: normal color, warm Results - Labs CBC & BMP: 12/29/16 08:21 12/29/16 04:00
== END 2016-12-29 16:10 | DRG 853 ==
LOC: N.CC 16:26 → SUATTDRO 16:26
PROVIDERS: ADMIT Internal Medicine; ATTEND Internal Medicine